=== PATIENT | female | born 1995 | race Caucasian/White ===

== ENCOUNTER 2017-02-26 16:53 | Emergency (ER) | payer SELFPAY ==
[~2017-02-26] VITALS: Ht 154.9 cm; Wt 64.0 kg
[2017-02-26] MEDS ORDERED: KETOROLAC 60MG/2ML VIAL IM ONE (21:30)
[2017-02-26 22:15] VITALS: BP 107/62
== END 2017-02-26 22:35 | disposition home or self-care (01) ==
LOC: ER 17:10
DX: S16.1XXA Strain of muscle, fascia and tendon at neck level, initial encounter (principal); S80.01XA Contusion of right knee, initial encounter; G44.209 Tension-type headache, unspecified, not intractable; T14.8XXA Other injury of unspecified body region, initial encounter; V49.88XA Car occupant (driver) (passenger) injured in other specified transport accidents, initial encounter; Y93.89 Activity, other specified; Y92.410 Unspecified street and highway as the place of occurrence of the external cause; Y99.8 Other external cause status
CPT/HCPCS: 70450; 71010; 73562; 81025; 96372; 99284; J1885; 99285

== ENCOUNTER 2017-05-11 18:31 | Emergency (ER) | payer SELFPAY ==
[~2017-05-11] VITALS: Ht 154.9 cm; Wt 64.0 kg
[2017-05-11] MEDS ORDERED: HYDROCODONE/ACETAMINOPHEN 5/325MG TABLET PO ONE (22:15)
[2017-05-11 22:36] LABS: BASOPHILS % 0.2 % (0.0-2.0); EOSINOPHILS % 0.5 % (0.0-5.0); HEMATOCRIT. 34.5 % (36.0-48.0); HEMOGLOBIN. 11.4 g/dL (12.0-16.0); LYMPHOCYTES % 13.4 % (20.0-50.0); MEAN CORPUSCULAR HEMOGLOBIN 29.2 pg (28.0-32.0); MEAN CORPUSCULAR VOLUME 88.6 fL (81.0-99.0); MEAN PLATELET VOLUME 7.9 fl (7.4-10.4); MONOCYTES % 7.9 % (2.0-8.0); PLATELET 258 x1000/uL (130-400); RED CELL DISTRIBUTION WIDTH 13.5 % (11.6-14.6)
[2017-05-11 22:44] LABS: CARBON DIOXIDE 26 mEq/L (21-32); CHLORIDE 105 mEq/L (98-107)
[2017-05-12 00:29] VITALS: BP 118/78
== END 2017-05-12 00:32 | disposition home or self-care (01) ==
LOC: ER 18:31
DX: L05.91 Pilonidal cyst without abscess (principal)
CPT/HCPCS: 36415; 80048; 83605; 85025; 87040; 99283